=== PATIENT | female | born 1960 | race Caucasian/White ===

== ENCOUNTER 2016-10-09 07:11 | Day surgery (SDC) | payer MEDICARE, BC ==
[2016-10-09] VITALS (10 sets, daily range): BP systolic 135–160; BP diastolic 70–81; PULSE 58–62; RESP 12–20; Ht 162.6 cm; Wt 75.4 kg
[~2016-10-09] VITALS: Ht 162.6 cm; Wt 75.4 kg
[~2016-10-09 07:11] MED LIST: GLYCOPYRROLATE 0.4 MG INJ ONE; HYDR-3672 PO; LOSA50TA6 PO; NEOSTIGMINE 3 MG/3 ML SYRINGE ONE; NEPH PO
[2016-10-09] MEDS ORDERED: CARV12.579 PO (07:43)
[2016-10-09] MEDS ORDERED: RENAVITE (07:43)
[2016-10-09] MEDS ORDERED: PANT40TA4 PO (07:43)
[2016-10-09] MEDS ORDERED: CLON-379 PO (07:43)
[2016-10-09] MEDS ORDERED: CLOP75TA4 PO (07:43)
[2016-10-09] MEDS ORDERED: ATOR20TA38 PO (07:43)
[2016-10-09 07:48] LABS: ADD SCAN DIFF NO
[2016-10-09] MEDS ORDERED: THROMBIN 5000 UNIT VIAL ONE (07:49)
[2016-10-09] MEDS ORDERED: LIDOCAINE 1% (MPF) 30 ML INJ ONE (07:49)
[2016-10-09] MEDS ORDERED: GELATIN SIZE 100 SPONGE ONE (07:49)
[2016-10-09] MEDS ORDERED: HEPARIN 1000 UNITS/ML 10 ML INJ ONE (07:49)
[2016-10-09 07:52] LABS: BASOPHILS % 0.7 % (0.0-2.0); EOSINOPHILS # 0.3 10^3/ul (0.0-0.5); EOSINOPHILS % 5.6 % (0.0-7.0); HEMOGLOBIN 11.9 g/dl (12.0-16.0); LYMPHOCYTES # 1.3 10^3/ul (0.8-2.9); LYMPHOCYTES % 22.4 % (15.0-51.0); MEAN CORPUSCULAR HEMOGLOBIN 33.7 pg (29.0-33.0); MEAN CORPUSCULAR HGB CONC 33.1 g/dl (32.0-37.0); MEAN PLATELET VOLUME 10.4 fl (7.4-10.4); MONOCYTE # 0.5 10^3/ul (0.3-0.9); MONOCYTES % 9.2 % (0.0-11.0); NEUTROPHIL # 3.5 10^3/ul (1.6-7.5); NEUTROPHILS % 61.9 % (39.0-77.0); PLATELET COUNT 120 10^3/UL (140-415); RED BLOOD COUNT 3.53 10^6/ul (4.20-5.40); RED CELL DISTRIBUTION WIDTH 13.7 % (11.5-14.5); WHITE BLOOD COUNT 5.6 10^3/ul (4.8-10.8)
--- NOTE | 2016-10-09 07:55 | RADRPT ---
PROCEDURE: XR Chest. CLINICAL INDICATION: Preop. TECHNIQUE: Single frontal portable chest was obtained. COMPARISON: 03/27/2016. FINDINGS: There is mild cardiomegaly present. There are atherosclerotic calcifications in the thoracic aorta. There is mild prominence the upper lobe pulmonary vasculature. Lung reynaga appear clear. Costophrenic angles are well defined. Right sided tunneled catheter appears unchanged with the tip at the cavoatrial junction. The osseous elements appear intact. IMPRESSION: 1. Cardiomegaly with mild pulmonary venous hypertension without alesha congestion. 2. No evidence for active cardiopulmonary disease. RPTAT: [facility] Physician Devika Date Time Electronically viewed and signed by Physician Devika on 10/09/2016 07:55 /
[2016-10-09] MEDS ORDERED: HEPARIN 1000 UNITS/ML 10 ML INJ IRR ONE (08:00)
[2016-10-09 08:04] LABS: INR 0.91; PARTIAL THROMBOPLASTIN TIME 33.7 Sec (25.0-35.0); PROTIME 12.2 Sec (12.2-14.2)
[2016-10-09] MEDS ORDERED: GLIP-95 PO (08:04)
--- NOTE | 2016-10-09 08:07 | HPN ---
Date/Time of Note Date/Time of Note DATE: 10/09/16 TIME: 08:07 Interval H&P Admission Note Pt. seen H&P reviewed: No system changes CAIN GUTIERREZ MD Oct 09, 2016 08:07
[2016-10-09 08:09] LABS: ALBUMIN 4.3 g/dl (3.3-4.9); ALBUMIN/GLOBULIN RATIO 1.1; BILIRUBIN,INDIRECT 0.2 mg/dl (0-1.1); BILIRUBIN,TOTAL 0.2 mg/dl (0.2-1.3); TOTAL PROTEIN 8.2 g/dl (6.1-8.1)
[2016-10-09] MEDS ORDERED: ONDANSETRON 4 MG INJ ONE (08:11)
[2016-10-09] MEDS ORDERED: FENTAnyl 50 MCG/ML VIAL ONE (08:11)
[2016-10-09] MEDS ORDERED: ROCURONIUM 50 MG INJ ONE (08:11)
[2016-10-09] MEDS ORDERED: SUCCINYLCHOLINE CHLORIDE 100 MG/5 ML SYG IV ONE (08:11)
[2016-10-09] MEDS ORDERED: MIDAZOLAM 1 MG/ML 2 ML INJ ONE (08:11)
[2016-10-09] MEDS ORDERED: PROPOFOL 20 ML ONE (08:11)
[2016-10-09 08:14] LABS: CALCIUM 9.3 mg/dl (8.4-10.2); CREATININE 5.04 mg/dl (0.44-1.00)
[2016-10-09] MEDS ORDERED: DEXAMETHASONE 4 MG/ML 1 ML INJ ONE (08:14)
[2016-10-09] MEDS ORDERED: LIDOCAINE 2% JELLY 5 ML ONE (08:14)
[2016-10-09] MEDS ORDERED: LIDOCAINE 1% (MPF) 30 ML INJ INJ ONE (08:15)
[2016-10-09] MEDS ORDERED: CEFAZOLIN 1 GM INJ ONE (08:26)
[2016-10-09] MEDS ORDERED: DIPHENHYDRAMINE 50 MG INJ ONE ×2 (08:26→08:30)
[2016-10-09] MEDS ORDERED: THROMBIN 5000 UNIT VIAL TOP ONE (09:08)
[2016-10-09] MEDS ORDERED: GELATIN SIZE 100 SPONGE TOP ONE (09:08)
[2016-10-09] MEDS ORDERED: hydrALAzine 20 MG INJ IV PRN (10:00)
[2016-10-09] MEDS ORDERED: EPHEDrine SULFATE 50 MG/5 ML SYG IV PRN (10:00)
[2016-10-09] MEDS ORDERED: MEPERIDINE 25 MG INJ IV PRN (10:00)
[2016-10-09] MEDS ORDERED: DIPHENHYDRAMINE 50 MG INJ IV PRN (10:00)
[2016-10-09] MEDS ORDERED: HYDROmorphONE (0.2 MG/ML) 10ML SYG IV PRN (10:00)
[2016-10-09] MEDS: HYDROmorphONE (0.2 MG/ML) 10ML SYG IV PRN ×2 (10:42→11:07)
--- NOTE | 2016-10-09 10:56 | OPR ---
DATE OF OPERATION: 10/09/2016 PREOPERATIVE DIAGNOSIS: Left arm arteriovenous fistula malfunction. POSTOPERATIVE DIAGNOSIS: Left arm arteriovenous fistula malfunction. PROCEDURE PERFORMED: Revision of left arm AV fistula with superficialization. SURGEON: Cain Lopes MD ANESTHESIA: General endotracheal anesthesia. ESTIMATED BLOOD LOSS: 50 mL. COMPLICATIONS: There are no intraprocedural complications. INDICATIONS: A 56-year-old woman with end-stage renal disease. She is on dialysis for quite a whil e now. She has a left brachiocephalic AV fistula that has had multiple interventions and it just ca nnot be successfully accessed. She is overweight and the vein is deep in the upper arm. So I broug ht her in today to superficialize the vein as it is fine on fistulogram, but it has not been accesse d successfully. So I am going to superficialize the vein. DESCRIPTION OF PROCEDURE: The patient was brought in to the operating room, placed on the table in the supine position. After induction of general endotracheal anesthesia, the left arm was prepped a nd draped in the usual sterile fashion. I mapped the vein out, I marked it on the skin. While she was prepped and draped, I made 3 incisions in the upper arm beginning at the elbow and extending up to the shoulder. I exposed the cephalic vein from the anastomosis at the elbow all the way up to th e upper arm. It was a good caliber vein along the entire length. I ligated all the side branches u sing 3-0 silk ties and divided them. Once I had the whole thing skeletonized, I then clamped the ve in really right just above the arterial anastomosis. I had marked the anterior surface with a corry ng pen. I then transected the vein obliquely and then brought it through the tunnel. I transected it about 3 cm above the arterial anastomosis. I then brought it through a tunnel, which I created u sing a long tunneling aortic clamp and a little more lateral plane lateral to the incisions, a very superficial plane right under the skin. I reanastomosed the 2 ends of the vein using 6-0 Prolene panchal ture in a running standard vascular surgical fashion. There was good hemostasis. I closed the site where I had harvested the vein with 3-0 Vicryl subcuticular sutures and surgical jw for the sk in. Sterile dressing was applied. The patient was then extubated in the operating room and transfe rred to the recovery room in stable condition. She tolerated the procedure well without any complic ations. Dictated By: CAIN VIRGEN/DANIEL Conf#: [id number] DID#: [id number] CC: MONTANA MARISCAL MD;*EndCC*
--- NOTE | 2016-10-09 12:36 | RADRPT ---
Vent Rate: 57 bpm RR Interval: 0 msec TX Interval: 202 msec QRS Duration: 94 msec QT Interval: 506 msec QTC Interval: 492 msec P-R-T [place]: 49 - 42 - 109 degrees Sinus bradycardia T wave abnormality, consider lateral ischemia Prolonged QT Abnormal ECG Electronically Signed By: Kishore Toure [id number]
== END 2016-10-09 13:05 | disposition home or self-care (01) ==
LOC: SDS 07:11
PROVIDERS: ATTEND Surgery Vascular Surgery
DX: T82.898A Other specified complication of vascular prosthetic devices, implants and grafts, initial encounter (principal); Y84.8 Other medical procedures as the cause of abnormal reaction of the patient, or of later complication, without mention of misadventure at the time of the procedure; Y92.89 Other specified places as the place of occurrence of the external cause; I12.0 Hypertensive chronic kidney disease with stage 5 chronic kidney disease or end stage renal disease; N18.6 End stage renal disease; E11.9 Type 2 diabetes mellitus without complications; I25.10 Atherosclerotic heart disease of native coronary artery without angina pectoris; J45.909 Unspecified asthma, uncomplicated
CPT/HCPCS: 36832; 71010; 80053; 82962; 85025; 85610; 85730; 93005; C1725; J0690; J1100; J1170; J1200; J1644; J2250; J2405; J2710; J3010; J0330